=== PATIENT | female | born 1960 | race Caucasian/White ===

== ENCOUNTER 2017-02-20 04:49 | Inpatient (IN) ==
[2017-02-20] MEDS ORDERED: *HR* Adenosine 6 MG/2 ML VIAL IVP ONE (04:52)
[2017-02-20] MEDS ORDERED: Nitroglycerin 25 MG/250 ML INFUS..BTL IVC SCH (05:00)
[2017-02-20] MEDS ORDERED: Furosemide 40 MG/4 ML VIAL IVP ONE ×2 (05:01→06:27)
[2017-02-20] MEDS ORDERED: methylPREDNISolone 125 MG/2 ML VIAL IVP ONE (05:02)
[2017-02-20] MEDS ORDERED: Ipratropium/Albuterol Neb 3 ML IH ONE (05:02)
[2017-02-20] MEDS ORDERED: Nitroglycerin 0.4 MG TAB.SUBL SL PRN (05:05)
--- NOTE | 2017-02-20 05:06 | Emergency Department Note ---
Disposition Clinical Impression: Supraventricular tachycardia, Pulmonary edema, Hypertension Disposition: Admitted As Inpatient Condition: Fair General Adult HPI - General Chief complaint: ED Arrhythmia/Palpitations Stated complaint: rapid HR Time Seen by Provider: 02/20/17 04:50 - Related Data Allergies Allergy/AdvReac Type Severity Reaction Status Date / Time No Known Drug Allergies Allergy Unknown Unresponsiv Verified 02/20/17 05:08 e No Known Drug Intolerances Allergy Unresponsiv Verified 02/20/17 05:08 e Course Vital Signs Temperature 0 F L 02/20/17 05:00 Pulse Rate 180 02/20/17 05:00 Respiratory Rate 28 02/20/17 05:00 Blood Pressure 188/122 02/20/17 05:00 O2 Sat by Pulse Oximetry 92 02/20/17 05:00 Temperature 98.1 F 02/20/17 05:40 Pulse Rate 124 02/20/17 06:10 Respiratory Rate 20 02/20/17 06:10 Blood Pressure 162/94 02/20/17 06:10 O2 Sat by Pulse Oximetry 97 02/20/17 06:10 Oxygen Delivery Oxygen Delivery Bipap Medical Decision Making - Lab Data Result diagrams: 02/20/17 05:15 02/20/17 05:15 Lab Results 02/20/17 02/20/17 02/20/17 Range/Units 05:15 05:15 05:15 WBC 18.3 H (4.3-11.1) K/mcL RBC 4.74 (3.82-4.97) M/mcL Hgb 13.2 (11.5-15.4) g/dL Hct 42.7 (35.3-44.9) % MCV 90.1 (83.0-100.0) fL MCH 27.8 L (28.0-33.3) pg MCHC 30.9 L (31.6-35.5) g/dL RDW 13.8 (11.5-14.5) % Plt Count 432 H (140-400) K/mcL MPV 10.7 (9.4-12.4) fL Immature Gran % 0.7 (0-4) % Seg Neutrophils % 53.6 % Lymphocytes % 36.0 % Monocytes % 7.9 % Eosinophils % 0.9 % Basophils % 0.9 % Neutrophils # 9.8 H (1.6-8.9) K/mcL Lymphocytes # 6.6 H (0.6-4.6) K/mcL Monocytes # 1.5 H (0.0-1.3) K/mcL Eosinophils # 0.2 (0.0-0.6) K/mcL Basophils # 0.2 (0.0-0.2) K/mcL ABG pH (7.32-7.45) pH Units ABG pCO2 (35-45) mmHg ABG pO2 (85-104) mmHg ABG HCO3 (21-27) mEQ/L ABG Total CO2 (20-26) mEq/L ABG O2 Saturation (95-98) % ABG Base Excess (-2.0 to 3.0) mEq/L Respiration Rate Blood Gas Modality Inspired O2 % PEEP cm H2O Sodium 141 (136-145) mEq/L Potassium 3.5 (3.5-4.5) mEq/L Chloride 111 H (98-109) mEq/L Carbon Dioxide 21 (19-29) mEq/L BUN 20 (7-20) mg/dL Creatinine 0.87 (0.57-1.11) mg/dL Est GFR ( Amer) > 60 (> 60) Est GFR (Non-Af Amer) > 60 (> 60) BUN/Creatinine Ratio 23 (6-26) Glucose 262 H (70-99) mg/dL Calculated Osmolality 304 H (280-300) Calcium 8.4 L (8.6-10.8) mg/dL Magnesium 2.0 (1.6-2.6) mg/dL Total Bilirubin 0.2 (0.2-1.2) mg/dL AST 23 (5-34) Units/L ALT 19 (0-55) Units/L Alkaline Phosphatase 121 (38-126) Units/L Troponin I 0.02 (0-0.03) ng/mL Serum Total Protein 7.1 (6.0-8.3) g/dL Albumin 3.4 L (3.5-5.0) g/dL Globulin 3.7 H (2.4-3.5) g/dL Albumin/Globulin Ratio 0.9 L (1.1-2.2) TSH 3.525 (0.350-4.840) mcIU/mL 02/20/17 Range/Units 05:20 WBC (4.3-11.1) K/mcL RBC (3.82-4.97) M/mcL Hgb (11.5-15.4) g/dL Hct (35.3-44.9) % MCV (83.0-100.0) fL MCH (28.0-33.3) pg MCHC (31.6-35.5) g/dL RDW (11.5-14.5) % Plt Count (140-400) K/mcL MPV (9.4-12.4) fL Immature Gran % (0-4) % Seg Neutrophils % % Lymphocytes % % Monocytes % % Eosinophils % % Basophils % % Neutrophils # (1.6-8.9) K/mcL Lymphocytes # (0.6-4.6) K/mcL Monocytes # (0.0-1.3) K/mcL Eosinophils # (0.0-0.6) K/mcL Basophils # (0.0-0.2) K/mcL ABG pH 7.22 L (7.32-7.45) pH Units ABG pCO2 61 H (35-45) mmHg ABG pO2 70 L (85-104) mmHg ABG HCO3 25.0 (21-27) mEQ/L ABG Total CO2 26.9 H (20-26) mEq/L ABG O2 Saturation 90 L (95-98) % ABG Base Excess -3.9 L (-2.0 to 3.0) mEq/L Respiration Rate 14 Blood Gas Modality BIPAP Inspired O2 60 % PEEP 6 cm H2O Sodium (136-145) mEq/L Potassium (3.5-4.5) mEq/L Chloride (98-109) mEq/L Carbon Dioxide (19-29) mEq/L BUN (7-20) mg/dL Creatinine (0.57-1.11) mg/dL Est GFR ( Amer) (> 60) Est GFR (Non-Af Amer) (> 60) BUN/Creatinine Ratio (6-26) Glucose (70-99) mg/dL Calculated Osmolality (280-300) Calcium (8.6-10.8) mg/dL Magnesium (1.6-2.6) mg/dL Total Bilirubin (0.2-1.2) mg/dL AST (5-34) Units/L ALT (0-55) Units/L Alkaline Phosphatase (38-126) Units/L Troponin I (0-0.03) ng/mL Serum Total Protein (6.0-8.3) g/dL Albumin (3.5-5.0) g/dL Globulin (2.4-3.5) g/dL Albumin/Globulin Ratio (1.1-2.2) TSH (0.350-4.840) mcIU/mL Critical Care Time Critical Care Time: Yes Total Critical Care Time: 45 Attestation: Patient presented with a tachycardia arrhythmia requiring IV adenosine and BiPAP therapy Attestation Statement - Attestation Attestation: I examined this patient and my medical decision-making was reviewed with the INTERFACE ANALYST/PA/Advanced Practice Nurse/Resident Physician. I agree with the documented findings, disposition and treatment plan as described except to the extent set forth below. Face to face time provided Patient presents by EMS from home in respiratory distress. Initial rhythm was a narrow complex tachycardia in the 190s. Adenosine given with improvement of heart rate in the 130s. This rate was suspected to be sinus tachycardia over atrial fibrillation with RVR. Pulmonary edema identified on chest x-ray. BiPAP and IV nitroglycerin therapy initiated.
--- NOTE | 2017-02-20 05:07 | Emergency Department Note ---
Disposition Clinical Impression: Supraventricular tachycardia Pulmonary edema Qualifiers: Chronicity: acute Qualified Code(s): J81.0 - Acute pulmonary edema Hypertension Qualifiers: Hypertension type: unspecified secondary hypertension Qualified Code(s): I15.9 - Secondary hypertension, unspecified; I15 - Secondary hypertension Disposition: Admitted As Inpatient Condition: Fair Referrals: NO,PCP [Primary Care Provider] - Forms: ED Satisfaction Letter Time of Disposition: 06:14 Arrhythmia/Palpitations HPI - General Chief Complaint: ED Arrhythmia/Palpitations Stated Complaint: rapid HR Time Seen by Provider: 02/20/17 04:50 Source: EMS Mode of arrival: EMS Limitations: no limitations Nursing Notes Reviewed: Yes Vital Signs Reviewed: Yes - History of Present Illness HPI Narrative: Patient is a 56-year-old female who presents to [facility] ED with a chief complaint of rapid heart rate and difficulty breathing. States her symptoms started approximately 20 minutes ago. States she has had this on and off for the last week. States she has had this before but they have never had to do anything about it the past. Denies any other medical history. Patient admits to tobacco abuse and Suboxone use. Pt Subjective Complaint: rapid heart beat Onset (ago): minute(s) Duration: constant Severity: severe Context: awoke with symptoms Arrhythmia History: SVT Associated symptoms: Reports: shortness of breath, diaphoresis. Denies: chest pain, nausea, vomiting - Related Data Allergies Allergy/AdvReac Type Severity Reaction Status Date / Time No Known Drug Allergies Allergy Unknown Unresponsiv Verified 02/20/17 05:08 e No Known Drug Intolerances Allergy Unresponsiv Verified 02/20/17 05:08 e All systems ED: reviewed and negative except as stated. Past Medical History - Past Medical History Attestation: Yes The following information was validated with the patient. Source: patient Medical history: Reports: SVT Physical Exam - General Limitations: no limitations General appearance: alert, in distress - Head Head exam: atraumatic, normocephalic, normal inspection - Eye Eye exam: Present: normal appearance, PERRL, EOMI - ENT ENT exam: normal exam, normal oropharynx, mucous membranes moist - Neck Neck exam: Present: normal inspection, full ROM, trachea midline - Chest Chest inspection: Present: normal inspection, symmetric chest wall rise - Respiratory Respiratory exam: Present: wheezes, other (tight breath sounds b/l) - Cardiovascular Cardiovascular exam: Present: tachycardia, other (SVT 222 bpm) - Abdominal Exam Abdominal exam: Present: soft, Non-Tender. Absent: tenderness, distention, guarding, rebound, rigidity - Extremities Exam Extremities exam: Present: normal inspection, full ROM, pedal edema. Absent: tenderness - Back Exam Back exam: Present: normal inspection, full ROM. Absent: tenderness - Neurological Exam Neurological exam: Present: alert - Psychiatric Psychiatric exam: Present: normal affect, normal mood - Skin Skin exam: Present: warm, dry, intact, normal color Course Course Narrative: Patient seen and examined. Initially presented in narrow complex tachycardia she appeared to be SVT with a rate of 222 bpm. Vagal maneuver was attempted but patient could not tolerate because she could not breathe. Her oxygen saturation saturations were around 85% on a nonrebreather. The patient was found to be hypertensive with blood pressure 180s over 140s. 6 mg of adenosine was pushed and patient's heart rate slowed down to 130 bpm and appears to be sinus tachycardia. However, patient did continue to have difficulty breathing with continued oxygen saturations in the 80s despite being on a nonrebreather. Concerned that patient has flash pulmonary edema. Stat chest x-ray and labwork ordered. Respiratory therapy was called to have patient placed on BiPAP. We will try sublingual nitroglycerin and nitroglycerin drip as well as 40 mg IV Lasix. - Reevaluation(s) Reevaluation #1: Upon reevaluation, patient's blood pressure has improved with systolic 120s. Patient is much more comfortable on the BiPAP. We will admit for acute pulmonary edema. I spoke with hospitalist Dr. Baptiste who has accepted patient for admission. Time: 06:11 Vital Signs Temperature 0 F L 02/20/17 05:00 Pulse Rate 180 02/20/17 05:00 Respiratory Rate 28 02/20/17 05:00 Blood Pressure 188/122 02/20/17 05:00 O2 Sat by Pulse Oximetry 92 02/20/17 05:00 Temperature 0 F L 02/20/17 05:00 Pulse Rate 180 02/20/17 05:00 Respiratory Rate 32 02/20/17 05:26 Blood Pressure 160/102 02/20/17 05:15 O2 Sat by Pulse Oximetry 92 02/20/17 05:26 Oxygen Delivery Oxygen Delivery Bipap Arrhythmia/Palpitations - Medical Records Medical records reviewed: Yes I reviewed the patient's medical records. - Lab Data Lab results reviewed: Yes I reviewed the patient's lab results. Result diagrams: 02/20/17 05:15 02/20/17 05:15 Lab Results 02/20/17 02/20/17 02/20/17 Range/Units 05:15 05:15 05:15 WBC 18.3 H (4.3-11.1) K/mcL RBC 4.74 (3.82-4.97) M/mcL Hgb 13.2 (11.5-15.4) g/dL Hct 42.7 (35.3-44.9) % MCV 90.1 (83.0-100.0) fL MCH 27.8 L (28.0-33.3) pg MCHC 30.9 L (31.6-35.5) g/dL RDW 13.8 (11.5-14.5) % Plt Count 432 H (140-400) K/mcL MPV 10.7 (9.4-12.4) fL Immature Gran % 0.7 (0-4) % Seg Neutrophils % 53.6 % Lymphocytes % 36.0 % Monocytes % 7.9 % Eosinophils % 0.9 % Basophils % 0.9 % Neutrophils # 9.8 H (1.6-8.9) K/mcL Lymphocytes # 6.6 H (0.6-4.6) K/mcL Monocytes # 1.5 H (0.0-1.3) K/mcL Eosinophils # 0.2 (0.0-0.6) K/mcL Basophils # 0.2 (0.0-0.2) K/mcL ABG pH (7.32-7.45) pH Units ABG pCO2 (35-45) mmHg ABG pO2 (85-104) mmHg ABG HCO3 (21-27) mEQ/L ABG Total CO2 (20-26) mEq/L ABG O2 Saturation (95-98) % ABG Base Excess (-2.0 to 3.0) mEq/L Respiration Rate Blood Gas Modality Inspired O2 % PEEP cm H2O Sodium 141 (136-145) mEq/L Potassium 3.5 (3.5-4.5) mEq/L Chloride 111 H (98-109) mEq/L Carbon Dioxide 21 (19-29) mEq/L BUN 20 (7-20) mg/dL Creatinine 0.87 (0.57-1.11) mg/dL Est GFR ( Amer) > 60 (> 60) Est GFR (Non-Af Amer) > 60 (> 60) BUN/Creatinine Ratio 23 (6-26) Glucose 262 H (70-99) mg/dL Calculated Osmolality 304 H (280-300) Calcium 8.4 L (8.6-10.8) mg/dL Magnesium 2.0 (1.6-2.6) mg/dL Total Bilirubin 0.2 (0.2-1.2) mg/dL AST 23 (5-34) Units/L ALT 19 (0-55) Units/L Alkaline Phosphatase 121 (38-126) Units/L Troponin I 0.02 (0-0.03) ng/mL Serum Total Protein 7.1 (6.0-8.3) g/dL Albumin 3.4 L (3.5-5.0) g/dL Globulin 3.7 H (2.4-3.5) g/dL Albumin/Globulin Ratio 0.9 L (1.1-2.2) TSH 3.525 (0.350-4.840) mcIU/mL 02/20/17 Range/Units 05:20 WBC (4.3-11.1) K/mcL RBC (3.82-4.97) M/mcL Hgb (11.5-15.4) g/dL Hct (35.3-44.9) % MCV (83.0-100.0) fL MCH (28.0-33.3) pg MCHC (31.6-35.5) g/dL RDW (11.5-14.5) % Plt Count (140-400) K/mcL MPV (9.4-12.4) fL Immature Gran % (0-4) % Seg Neutrophils % % Lymphocytes % % Monocytes % % Eosinophils % % Basophils % % Neutrophils # (1.6-8.9) K/mcL Lymphocytes # (0.6-4.6) K/mcL Monocytes # (0.0-1.3) K/mcL Eosinophils # (0.0-0.6) K/mcL Basophils # (0.0-0.2) K/mcL ABG pH 7.22 L (7.32-7.45) pH Units ABG pCO2 61 H (35-45) mmHg ABG pO2 70 L (85-104) mmHg ABG HCO3 25.0 (21-27) mEQ/L ABG Total CO2 26.9 H (20-26) mEq/L ABG O2 Saturation 90 L (95-98) % ABG Base Excess -3.9 L (-2.0 to 3.0) mEq/L Respiration Rate 14 Blood Gas Modality BIPAP Inspired O2 60 % PEEP 6 cm H2O Sodium (136-145) mEq/L Potassium (3.5-4.5) mEq/L Chloride (98-109) mEq/L Carbon Dioxide (19-29) mEq/L BUN (7-20) mg/dL Creatinine (0.57-1.11) mg/dL Est GFR ( Amer) (> 60) Est GFR (Non-Af Amer) (> 60) BUN/Creatinine Ratio (6-26) Glucose (70-99) mg/dL Calculated Osmolality (280-300) Calcium (8.6-10.8) mg/dL Magnesium (1.6-2.6) mg/dL Total Bilirubin (0.2-1.2) mg/dL AST (5-34) Units/L ALT (0-55) Units/L Alkaline Phosphatase (38-126) Units/L Troponin I (0-0.03) ng/mL Serum Total Protein (6.0-8.3) g/dL Albumin (3.5-5.0) g/dL Globulin (2.4-3.5) g/dL Albumin/Globulin Ratio (1.1-2.2) TSH (0.350-4.840) mcIU/mL - Radiology Data Radiology results reviewed: Yes I reviewed the patient's radiology results. Chest X-Ray 02/20/17 04:56 IMPRESSION: Diffuse interstitial edema. D/ / Maisha Gross MD / Maisha Gross MD Interpreting Provider: Maisha Gross MD - EKG Data EKG attestation: Yes I reviewed and interpreted this EKG. EKG results narrative: EKG done at 452 shows narrow complex tachycardia with a rate of around [address] elevation or depression. Normal axis. EKG done at 501 shows sinus tachycardia with a rate of [address] elevation or depression noted. Poor quality study. Normal axis.
[2017-02-20 05:23] LABS: Basophils # 0.2 K/mcL (0.0-0.2); Basophils % 0.9 %; Eosinophils # 0.2 K/mcL (0.0-0.6); Eosinophils % 0.9 %; Hematocrit 42.7 % (35.3-44.9); Hemoglobin 13.2 g/dL (11.5-15.4); Immature Granulocytes % 0.7 % (0-4); Lymphocytes # 6.6 K/mcL (0.6-4.6); Mean Corpuscular HGB Conc 30.9 g/dL (31.6-35.5); Mean Corpuscular Hemoglobin 27.8 pg (28.0-33.3); Mean Corpuscular Volume 90.1 fL (83.0-100.0); Mean Platelet Volume 10.7 fL (9.4-12.4); Monocytes # 1.5 K/mcL (0.0-1.3); Monocytes % 7.9 %; Neutrophils # 9.8 K/mcL (1.6-8.9); Platelet Count 432 K/mcL (140-400); Red Blood Count 4.74 M/mcL (3.82-4.97); Red Cell Distribution Width 13.8 % (11.5-14.5); Segmented Neutrophils % 53.6 %
[2017-02-20 05:27] LABS: ABG Base Excess -3.9 mEq/L (-2.0 to 3.0); ABG Oxygen Saturation 90 % (95-98); ABG PCO2 61 mmHg (35-45); ABG PH 7.22 pH Units (7.32-7.45); ABG PO2 70 mmHg (85-104); ABG TCO2 26.9 mEq/L (20-26); Blood Gas FiO2 60 %; Blood Gas PEEP 6 cm H2O; Blood Gas Respiration Rate 14
[2017-02-20 05:38] LABS: Alanine Aminotransferase 19 Units/L (0-55); Albumin 3.4 g/dL (3.5-5.0); Albumin/Globulin Ratio 0.9 (1.1-2.2); Alkaline Phosphatase 121 Units/L (38-126); Aspartate Amino Transferase 23 Units/L (5-34); BUN/Creatinine Ratio 23 (6-26); Bilirubin,Total 0.2 mg/dL (0.2-1.2); Blood Urea Nitrogen 20 mg/dL (7-20); Calcium 8.4 mg/dL (8.6-10.8); Carbon Dioxide 21 mEq/L (19-29); Chloride 111 mEq/L (98-109); Globulin 3.7 g/dL (2.4-3.5); Glucose 262 mg/dL (70-99); Osmolality,Calculated 304 (280-300); Potassium 3.5 mEq/L (3.5-4.5); Sodium 141 mEq/L (136-145); Total Protein 7.1 g/dL (6.0-8.3); eGFR For African Americans > 60 (> 60); eGFR For Non-African Americans > 60 (> 60)
[2017-02-20 05:58] LABS: Thyroid Stimulating Hormone 3.525 mcIU/mL (0.350-4.840)
--- NOTE | 2017-02-20 06:41 | Internal Med History&Physical ---
Date of Encounter: 02/20/17 Time of Encounter: 06:38 Assessment and Plan (1) Supraventricular tachycardia Current visit: Yes Status: Acute As a sealant presentation. This cardioversion with 6 mg of Karol. Currently in sinus tachycardia. I will start the patient on metoprolol 25 mg twice a day. Echocardiogram thyroid functions will be checked. Cardiology consultation. (2) Pulmonary edema Current visit: Yes Status: Acute Pulmonary edema secondary to SVT. Patient is currently a nitroglycerin drip. Will give a total of 80 mg IV Lasix now continue Lasix 40 mg IV twice daily. Pinedo catheter will be placed. strict intake and output. She denies any chest pain. Will check serial troponin. Keep on aspirin beta blockers. Ruled out acute coronary syndrome. I would also Check D dimer. Qualifiers: Chronicity: acute Qualified Code(s): J81.0 - Acute pulmonary edema (3) Hypercapnic respiratory failure Current visit: Yes Status: Acute Due to pulmonary edema. Patient is currently on BiPAP support. Continue. Patient is full code. Qualifiers: Qualified Code(s): J96.92 - Respiratory failure, unspecified with hypercapnia Internal Medicine - H&P: HPI Chief complaint: palpitations and SOB History of present illness: Ms. Lopez is a 56 year old female with past medical history of cardiac arrhythmia which he has been managing with vagal maneuvers but has not seen physicians and does not take medicines for it presents to the emergency room today with the main complaint palpitations and shortness of breath. Approximately 4 AM as patient was getting ready to go to bed she started noticing sudden onset palpitations which she describes as fast and regular. She attempted vagal maneuvers like holding her breath etc. without success. She also started complaining of shortness of breath addressed, sweating. She was hypoxic on arrival to emergency room to 85% with increased work of breathing so she was placed on BiPAP support. She denied and chest pain. She denies any prior known history of coronary artery disease. No chest pain with exertion. She denies any fever chills or sputum production. Most contexts. No prior history of DVT or pulmonary embolism. She does not take any hormonal therapy Past Med Surg Social Fam HX - Past Medical History Medical history: SVT - Social History Smoking Status: Current every day smoker Smokeless Tobacco Status: No Alcohol use: none Drug use: none Internal Medicine - H&P: Meds Allergies No Known Drug Allergies Allergy (Unknown, Verified 02/20/17 05:08) Unresponsive No Known Drug Intolerances Allergy (Verified 02/20/17 05:08) Unresponsive All Systems PM: A 10-system review of systems was performed and is negative for pertinent findings except as documented above in the HPI. Review of systems: 10 point review of systems is negative except for HPI - Constitutional Vitals: Temp Pulse Resp BP Pulse Ox 98.1 F 124 20 162/94 97 02/20/17 05:40 02/20/17 06:10 02/20/17 06:10 02/20/17 06:10 02/20/17 06:10 Exam: Gen.: patient is alert oriented times 3, moderate respiratory distress cardiac: normal S1 S2 no additional sounds or murmurs chest: bilateral diffuse rales abdomen soft nontender nondistended normal bowel sounds lower extremity no swelling. Neuro: no new focal deficits Internal Med - H&P Results - Labs CBC & Chem 7: 02/20/17 05:15 02/20/17 05:15
[2017-02-20] MEDS ORDERED: Diltiazem CD (24hr) 120 MG CAPSULE PO SCH (09:00)
[2017-02-20 09:29] LABS: Amphetamine Screen,Urine Negative ng/mL (Cutoff=1000); Barbiturate Screen,Urine Negative ng/mL (Cutoff=200); Benzodiazepines Screen,Urine Negative ng/mL (Cutoff=200); Cannabinoid Screen,Urine Negative ng/mL (Cutoff = 50); Cocaine Screen,Urine Negative ng/mL (Cutoff= 300); Opiate Screen,Urine Negative ng/mL (Cutoff=300); Phencyclidine Screen,Urine Negative ng/mL (Cutoff=25)
[2017-02-20 09:42] LABS: Bilirubin,Urine Negative (Negative); Blood,Urine Negative (Negative); Clarity,Urine Clear (Clear); Color,Urine Yellow (Yellow); Glucose,Urine (UA) Normal (Normal); Ketones,Urine Negative (Negative); Leukocyte Esterase,Urine Negative (Negative); Nitrite,Urine Negative (Negative); PH,Urine 6.5 pH Units (5.0-8.0); Protein,Urine Negative (Neg-Trace); Specific Gravity,Urine 1.011 (1.010-1.025); Urobilinogen,Urine Normal (Normal)
[2017-02-20] MEDS: SUBOXONE PO SCH ×2 (09:59→22:45)
--- NOTE | 2017-02-20 10:23 | Event Note ---
Date of Encounter: 02/20/17 Time of Encounter: 10:19 Admitted for SVTs Pulmonary edema Attention drawn to patient with SVTs HR 250s She is hemodynamically stable, awake, alert, no CP, no diaphoresis We gave Adneosine 6mg X1, 12mg X1 EKG changed to sinus rhythm Later she went into SVTs again BP stable Responded to 10mg cardizem push She has been started on cardizem drip at a low dose with aim to transition to po Initial trop negative, ECHO is pending, cardiology was already consulted by admitting team Nitro drip discontinued Continue other management
[2017-02-20] MEDS: Furosemide 40 MG/4 ML VIAL IVP SCH ×2 (11:03→21:25)
[2017-02-20] MEDS: Aspirin 325 MG TABLET PO SCH (11:03)
--- NOTE | 2017-02-20 11:49 | Cardiology Consult Note ---
<Jesus Manuel Pandey R - Last Filed: 02/20/17 11:59> Date of Encounter: 02/20/17 Time of Encounter: 11:49 Assessment and Plan (1) Supraventricular tachycardia Current Visit: Yes Status: Acute Reportedly converted with 6mg of Adenosine on presentation. 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 Based on hx, seems to have been intermittent since she was a child. Recurrent episode with HR documented as 250 and was given cardizem IV bolus and started on gtt. Hospitalist transitioning to PO Cardizem CD 120mg daily and started on Lopressor 25mg BID. Agree with these medications. SR at bedside with brief runs of SVT. Check echo to evaluate structure and function. Will refer to EP as outpt to discuss treatment options/ablation. K 3.5, Mag 2.0, TSH within normal range. Reports 2-3 cups of coffee each morning then sips on pop throughout the day. Discussed decreasing caffeine intake. Continue to follow. (2) Pulmonary edema Current Visit: Yes Status: Acute On IV diuresis, Lasix 40mg BID. Echo to evaluate structure and function. Qualifiers: Chronicity: acute Qualified Code(s): J81.0 - Acute pulmonary edema (3) Hypertension Current Visit: Yes Status: Acute CCB and BB started. BP currently controlled. Qualifiers: Hypertension type: unspecified secondary hypertension Qualified Code(s): I15.9 - Secondary hypertension, unspecified; I15 - Secondary hypertension (4) Elevated troponin Current Visit: Yes Status: Acute 0.02, 0.08 in setting of SVT/AVNRT, likely demand ischemia. Nondiagnostic for ACS. Pt denies chest pain. Check echo to evaluate structure and function. Will discuss with Dr. Wahl. Can consider stress test as inpt if warranted. (5) Hypercapnic respiratory failure Current Visit: Yes Status: Acute Previously on BiPAP, currently on nasal cannula O2. Management per primary team. Qualifiers: Chronicity: acute Qualified Code(s): J96.02 - Acute respiratory failure with hypercapnia Discussion w patient/family: The assessment and plan as outlined above was discussed with the patient and/or family members who expressed understanding and agreement. All questions were answered. Thank you for involving us in the care of your patient. Please call with any questions. I will discuss all the above with Dr. Wahl and make changes as necessary. History of Present Illness Consult date: 02/20/17 Requesting physician: Varun Baptiste Consult reason: SVT Chief complaint: palpitations, dyspnea History of present illness: Ms. Lopez is a 56 year old female with PMH of self reported cardiac arrhythmia which he has been managing with vagal maneuvers since she was a child , but has not seen a provider. She reports episodes started worsening over the past week and she presented to the emergency room today with chief complaints of palpitations and shortness of breath. Approximately 4 AM she had sudden onset of palpitations which she describes as fast and regular. She attempted vagal maneuvers like holding her breath etc. without success. She also started complaining of shortness of breath and sweating. She was noted to be hypoxic on arrival to emergency room to 85% with increased work of breathing so she was placed on BiPAP support. She denied and chest pain. She denies any prior known history of coronary artery disease. Troponin negative x 1. Pt now on nasal cannula O2. Reports currently feeling better. Admits to drinking 2-3 cups/ coffee each morning and sipping on mellow yellow throughout the day. Past Med Surg Social Fam HX - Past Medical History Medical history: SVT Psychiatric history: anxiety - Social History Smoking Status: Current every day smoker Smokeless Tobacco Status: No Alcohol use: none Drug use: none Medications and Allergies Buprenorphine HCl/Naloxone HCl [Buprenorphin-Naloxon 8-2 mg Sl] 1 tab SL BID [History] Allergies No Known Allergies Allergy (Verified 02/20/17 09:15) All Systems Review: A 10-system review of systems was performed and is negative for pertinent findings except as documented above in the HPI. - Cardiovascular Cardiovascular: as per HPI, dyspnea at rest, dyspnea on exertion, palpitations - Respiratory Respiratory: dyspnea Physical Examination Vital Signs, Last 4 Hours Temp Pulse Resp BP Pulse Ox 02/20/17 11:34 98.1 F 81 18 116/83 97 Vital Signs Temp Pulse Resp BP Pulse Ox 02/20/17 11:34 98.1 F 81 18 116/83 97 02/20/17 07:04 97.4 F L 138 38 136/97 100 02/20/17 06:10 124 20 162/94 97 02/20/17 06:00 118 20 170/98 98 02/20/17 05:50 120 20 128/104 98 02/20/17 05:40 98.1 F 124 20 134/107 98 02/20/17 05:30 140 20 165/116 94 02/20/17 05:26 32 92 02/20/17 05:20 150 20 160/102 90 02/20/17 05:15 32 160/102 92 02/20/17 05:00 0 F L 180 28 188/122 92 Intake and Output 02/19/17 02/20/17 02/20/17 23:59 07:59 15:59 Intake Total Output Total 500 / 500 Balance -485 / -485 Intake: IV Fluids Nitroglycerin 25 mg In 250 ml @ 10 MCG/MIN 6 mls /hr IVC .Q24H [facility] Rx#: [id number] Output: Urine 500 / 500 Other: Weight 56.699 kg Patient Weight 02/20/17 23:59 Weight 56.699 kg General: Conversant, No Apparent Distress HEENT: Atraumatic, Normocephaly, Mucus Membranes Moist Neck: No JVD, Normal carotid pulses Cardiac: Reg Rate and Rhythm, Normal S1 and S2, No Murmur Lungs: Other (diminished) Neuro: Alert and responsive, No focal deficits noted Abdomen: Soft, Non-Tender Skin: No rashes noted on visualized skin Musculoskeletal: No Chest Wall Tenderness Extremities: No Clubbing, No Cyanosis, No Edema, Normal Pulses Results 02/20/17 05:15 02/20/17 05:15 Lab Results 02/20/17 11:06 Troponin I 0.08 H* Short CBC 02/20/17 Range/Units 05:15 WBC 18.3 H (4.3-11.1) K/mcL Hgb 13.2 (11.5-15.4) g/dL Hct 42.7 (35.3-44.9) % Plt Count 432 H (140-400) K/mcL Neutrophils # 9.8 H (1.6-8.9) K/mcL BMP 02/20/17 Range/Units 05:15 Sodium 141 (136-145) mEq/L Potassium 3.5 (3.5-4.5) mEq/L Chloride 111 H (98-109) mEq/L Carbon Dioxide 21 (19-29) mEq/L BUN 20 (7-20) mg/dL Creatinine 0.87 (0.57-1.11) mg/dL Glucose 262 H (70-99) mg/dL Calcium 8.4 L (8.6-10.8) mg/dL Cardiac Enzymes 02/20/17 02/20/17 Range/Units 11:06 05:15 Troponin I 0.08 H* 0.02 (0-0.03) ng/mL Liver Function 02/20/17 Range/Units 05:15 Total Bilirubin 0.2 (0.2-1.2) mg/dL AST 23 (5-34) Units/L ALT 19 (0-55) Units/L Alkaline Phosphatase 121 (38-126) Units/L Albumin 3.4 L (3.5-5.0) g/dL Urine 02/20/17 Range/Units 09:00 Urine Color Yellow (Yellow) Urine Clarity Clear (Clear) Urine pH 6.5 (5.0-8.0) pH Units Ur Specific [place] 1.011 (1.010-1.025) Urine Protein Negative (Neg-Trace) mg/dL Urine Glucose (UA) Normal (Normal) mg/dL Impressions Chest X-Ray 02/20/17 04:56 IMPRESSION: Diffuse interstitial edema. D/ / Maisha Gross MD / Maisha Gross MD Interpreting Provider: Maisha Gross MD Active Medications Aspirin (Aspirin) 325 mg PO DAILY [facility] Stop: 08/22/17 09:01 Last Admin: 02/20/17 11:03 Dose: 325 mg Diltiazem HCl (Cardizem Cd) 120 mg PO DAILY [facility] Stop: 08/22/17 09:01 Enoxaparin Sodium (Lovenox) 40 mg SQ 0600 [facility] PRN Reason: Protocol Stop: 08/23/17 07:01 Furosemide (Lasix) 40 mg IVP BID [facility] Stop: 08/22/17 09:01 Last Admin: 02/20/17 11:03 Dose: 40 mg Nitroglycerin (Nitroglycerin) 25 mg in 250 mls @ 6 mls/hr IVC .Q24H [facility]; 10 MCG /MIN PRN Reason: Protocol Stop: 08/22/17 05:01 Last Titration: 02/20/17 08:05 Dose: 0 mcg/min, 0 mls/hr Diltiazem HCl 125 mg/ Dextrose 125 mls @ 5 mls/hr IVC .Q24H [facility]; 5 MG/HR PRN Reason: Protocol Stop: 08/22/17 08:31 Last Admin: 02/20/17 08:35 Dose: 5 mg/hr, 5 mls/hr Metoprolol Tartrate (Lopressor) 25 mg PO BID [facility] Stop: 08/22/17 09:01 Last Admin: 02/20/17 09:42 Dose: Not Given Nitroglycerin (Nitroglycerin) 0.4 mg SL Q5MIN PRN PRN Reason: Chest Pain Stop: 08/22/17 05:06 Pharmacy Profile Note (Patient Taking Own Medication) 1 each PO BID [facility] Stop: 08/22/17 09:01 Last Admin: 02/20/17 09:59 Dose: 1 each - EKG Interpretation EKG results cardiology: personally reviewed (SVT, AVNRT), other (24 hour tele AVG HR 91, SVT/AVNRT noted) Consult Discharge Plan - Plan Referrals: NO,PCP [Primary Care Provider] - <Zenaida Wahl - Last Filed: 02/20/17 15:59> Date of Encounter: 02/20/17 Assessment and Plan Discussion w patient/family: The assessment and plan as outlined above was discussed with the patient and/or family members who expressed understanding and agreement. All questions were answered. Thank you for involving us in the care of your patient. Please call with any questions. History of Present Illness History of present illness: Ms. Lopez is a 56 year old female All Systems Review: A 10-system review of systems was performed and is negative for pertinent findings except as documented above in the HPI. Physical Examination Vital Signs, Last 4 Hours Pulse Resp BP Pulse Ox 02/20/17 13:00 87 18 93/66 97 02/20/17 12:00 78 18 109/74 95 Results 02/20/17 05:15 02/20/17 05:15 Lab Results 02/20/17 11:06 Troponin I 0.08 H* - Attending Attestation I examined this patient and my medical decision-making was reviewed with the BOILER HELPER/PA/Advanced Practice Nurse/Resident Physician. I agree with the documented findings, disposition and treatment plan. Patient has a reported history of dysrhythmia and reports more frequent symptoms recently which appears to be driven by her respiratory status. Presenting ECG demonstrates SVT. She is having occasional episodes of SVT over the course of the day. She is feeling better. Agree with AVN blockers. May recommend follow up with Dr. Pablo Victor.
[2017-02-20] MEDS ORDERED: *HR* Adenosine 6 MG/2 ML SYRINGE IVP ONE (13:59)
[2017-02-20] MEDS ORDERED: Dextrose Gel 15 GM PO PRN ×2 (15:41)
[2017-02-20] MEDS ORDERED: *HR* Dextrose 50 % in Water (Syg) 50 ML SYRINGE IVP PRN (15:41)
[2017-02-20] MEDS ORDERED: D5% in Water 1,000 ML IVC PRN (15:41)
[2017-02-20] MEDS ORDERED: Nicotine 21 MG PATCH.TD24 TD PRN (15:41)
[2017-02-20] MEDS: Insulin LISPRO 300 UNITS/3 ML VIAL SQ SCH (16:33)
[2017-02-20] MEDS: Diltiazem CD (24hr) 120 MG CAPSULE PO SCH (17:00)
[2017-02-20 18:03] LABS: Hemoglobin A1C 4.9 %
--- NOTE | 2017-02-20 18:07 | Electrocardiograph Report ---
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
--- NOTE | 2017-02-20 18:08 | Electrocardiograph Report ---
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
[2017-02-20] MEDS ORDERED: Insulin LISPRO 300 UNITS/3 ML VIAL SQ SCH (21:00)
[2017-02-21] MEDS ORDERED: *HR* Enoxaparin 40 MG/0.4 ML SYRINGE SQ SCH (07:00)
[2017-02-21 07:46] LABS: Basophils % 0.1 %; Eosinophils % 0.1 %; Hematocrit 38.2 % (35.3-44.9); Hemoglobin 11.9 g/dL (11.5-15.4); Immature Granulocytes % 0.3 % (0-4); Lymphocytes # 2.2 K/mcL (0.6-4.6); Lymphocytes % 16.3 %; Mean Corpuscular HGB Conc 31.2 g/dL (31.6-35.5); Mean Corpuscular Hemoglobin 27.2 pg (28.0-33.3); Mean Corpuscular Volume 87.4 fL (83.0-100.0); Mean Platelet Volume 11.3 fL (9.4-12.4); Monocytes # 1.5 K/mcL (0.0-1.3); Monocytes % 10.8 %; Neutrophils # 9.9 K/mcL (1.6-8.9); Platelet Count 338 K/mcL (140-400); Red Blood Count 4.37 M/mcL (3.82-4.97); Red Cell Distribution Width 13.7 % (11.5-14.5); Segmented Neutrophils % 72.4 %
[2017-02-21] MEDS: Insulin LISPRO 300 UNITS/3 ML VIAL SQ SCH ×2 (08:02→12:14)
[2017-02-21 08:03] LABS: BUN/Creatinine Ratio 31 (6-26); Blood Urea Nitrogen 25 mg/dL (7-20); Calcium 9.3 mg/dL (8.6-10.8); Carbon Dioxide 29 mEq/L (19-29); Chloride 102 mEq/L (98-109); Glucose 95 mg/dL (70-99); Magnesium 2.1 mg/dL (1.6-2.6); Osmolality,Calculated 290 (280-300); Potassium 3.9 mEq/L (3.5-4.5); Sodium 138 mEq/L (136-145); eGFR For African Americans > 60 (> 60); eGFR For Non-African Americans > 60 (> 60)
[2017-02-21] MEDS: Diltiazem CD (24hr) 120 MG CAPSULE PO SCH (08:38)
[2017-02-21] MEDS: Aspirin 325 MG TABLET PO SCH (08:38)
[2017-02-21] MEDS: Furosemide 40 MG/4 ML VIAL IVP SCH (08:38)
[2017-02-21] MEDS: SUBOXONE PO SCH (10:15)
--- NOTE | 2017-02-21 10:59 | Discharge Summary ---
Date of Encounter: 02/21/17 Time of Encounter: 10:56 - Discharge Diagnosis (1) Hypercapnic respiratory failure Priority: Primary Status: Acute Qualifiers: Chronicity: acute Qualified Code(s): J96.02 - Acute respiratory failure with hypercapnia (2) Hypertension Priority: Secondary Status: Chronic Qualifiers: Hypertension type: unspecified secondary hypertension Qualified Code(s): I15.9 - Secondary hypertension, unspecified; I15 - Secondary hypertension (3) Pulmonary edema Priority: Primary Status: Acute Qualifiers: Chronicity: acute Qualified Code(s): J81.0 - Acute pulmonary edema (4) Supraventricular tachycardia Priority: Primary Status: Acute - Discharge Medications Prescriptions: Diltiazem CD (24hr) [Cardizem CD] 120 mg PO DAILY #30 cap.er.24h Furosemide [Lasix] 40 mg PO BID #60 tab Metoprolol [Lopressor] 12.5 mg PO BID #60 tablet Home Medications: Buprenorphine HCl/Naloxone HCl [Buprenorphin-Naloxon 8-2 mg Sl] 1 tab SL BID [History] Diltiazem CD (24hr) [Cardizem CD] 120 mg PO DAILY #30 cap.er.24h 02/21/17 [Rx] Furosemide [Lasix] 40 mg PO BID #60 tab 02/21/17 [Rx] Metoprolol [Lopressor] 12.5 mg PO BID #60 tablet 02/21/17 [Rx] Allergies/Adverse Reactions: Allergies No Known Allergies Allergy (Verified 02/20/17 09:15) Procedures/tests Complete & Pending: Procedures Performed prior 72 hours Category Date Time Status ECG 12 lead ECG [ECG] Routine Y 02/20/17 07:51 Completed Date of admission: 02/20/17 06:25 Primary care physician: PCP NO Consults: Cardiology: Dr. Wahl Discharging clinician: Gogo Mendoza Anticipated date of discharge: 02/21/17 - Patient Status Disposition: Home, Self-Care Condition: Good Functional capacity at discharge: independent ambulation Overall status at discharge: patient is back to baseline - Discharge Instructions Follow Up With: NO,PCP [Primary Care Provider] - Additional Instructions: Please follow up with your primary care physician within five days after your discharge from the hospital. Please follow up with your cross enterprise integrator within one week after your discharge from the hospital. Cardizem 120mg once a day has been added to your home medications. Metoprolol 12.5mg twice a day has been added to your home medications. Closely monitor your blood pressure daily. Hold this medication if your SBP<120. Document these BP readings and take them with you to your cross enterprise integrator's appointment. Lasix 40mg twice a day has been added to your home medications. Resume all your home medications as prescribed by your primary care physician. Smoking cessation is highly advised. - Diet and Activity Diet: low salt diet Hospital course: Ms. Lopez is a 56 year old female with PMH of anxiety and self reported cardiac arrhythmia who was admitted for management of acute respiratory failure secondary to pulmonary edema and SVT. Pt was started on IV diuresis and required Adenosine x 2 doses for rate control/conversion. She was further started on cardizem PO with adequate rate control. She was followed by cardiology and had a 2D echo which shows Normal LV systolic function with LVEF of 65% and evidence of small to moderate pericardial effusion adjacent to the right atrium and right ventricle. No cardiac tamponade. Pt is clinically asymptomatic. Vitals within acceptable range. Holding BB dose due to low BP. Rate controlled with cardizem. Patient wishes to be discharged to home. Discharge pending clearance from cardiology - Time Spent with Patient Total time spent providing and/or coordinating discharge services: Less than 30 minutes - Constitutional Vitals: Temp Pulse Resp BP Pulse Ox 98.3 F 70 15 100/79 97 02/21/17 07:49 02/21/17 07:49 02/21/17 07:49 02/21/17 07:49 02/21/17 07:49 General appearance: Present: cooperative, A&O X 3, pleasant, no acute distress, answers questions appropriately - Head Head exam: Present: atraumatic, normocephalic - Eye Eye exam: Present: normal appearance, PERRL, conjuntiva pink, sclera anicteric - Respiratory Respiratory exam: Present: CTAB. Absent: accessory muscle use, rales, rhonchi, wheezes - Cardiovascular Cardiovascular exam: Present: RRR, +S1, +S2. Absent: diastolic murmur, gallop, rubs, systolic murmur - GI/Abdominal GI/Abdominal exam: Present: normal bowel sounds, soft, no peritoneal signs. Absent: distended, tenderness - Extremities Exam Extremities exam: Present: warm, radial pulses palpable and symetrical. Absent : calf tenderness, cyanotic, pedal edema - Neurological Exam Neurological exam: Present: alert, oriented X3 - Psychiatric Psychiatric exam: Present: normal affect, normal mood
[2017-02-21 11:26] VITALS: BP 111/71
--- NOTE | 2017-02-21 11:54 | Cardiology Progress Note ---
Date of Encounter: 02/21/17 Time of Encounter: 11:51 Assessment and Plan (1) Supraventricular tachycardia Current Visit: Yes Status: Acute Reportedly converted with 6mg of Adenosine on presentation. EKGs reviewed with EP, Dr. Pablo Victor-IMANIT, possibly exacerbated secondary to respiratory status. Based on hx, seems to have been intermittent since she was a child. Started on PO Cardizem CD 120mg daily and Lopressor 12.5mg BID. Agree with these medications. Will refer to EP as outpt to discuss treatment options/ablation. K 3.5, Mag 2.0, TSH within normal range. Reports 2-3 cups of coffee each morning then sips on pop throughout the day. Discussed decreasing caffeine intake. Echo shows preserved EF 65%. Small-moderate pericardial effusion without evidence of tamponade. Cardiology signing off. Follow-up as outpt. Will coordinate outpt echo on Monday to re-evaluate pericardial effusion. (2) Pulmonary edema Current Visit: Yes Status: Acute Transitioned to PO Lasix by hospitalist. Breathing has improved, now on room air. Preserved EF on echo. Qualifiers: Chronicity: acute Qualified Code(s): J81.0 - Acute pulmonary edema (3) Hypertension Current Visit: Yes Status: Chronic CCB and BB started. BP currently controlled. Qualifiers: Hypertension type: unspecified secondary hypertension Qualified Code(s): I15.9 - Secondary hypertension, unspecified; I15 - Secondary hypertension (4) Elevated troponin Current Visit: Yes Status: Acute 0.02, 0.08. 0.04 in setting of SVT/AVNRT, likely demand ischemia. Nondiagnostic for ACS. Pt denies chest pain. Preserved EF on echo. (5) Hypercapnic respiratory failure Current Visit: Yes Status: Acute Previously on BiPAP, then nasal cannula O2, now on room air. Management per primary team. Qualifiers: Chronicity: acute Qualified Code(s): J96.02 - Acute respiratory failure with hypercapnia (6) Pericardial effusion without cardiac tamponade Current Visit: Yes Status: Acute Echo shows small-moderate pericardial effusion adjacent to right atrium and right ventricle without evidence of tamponade. Will coordinate outpt echo on Monday to re-evaluate pericardial effusion. Discussion w patient/family: The assessment and plan as outlined above was discussed with the patient and/or family members who expressed understanding and agreement. All questions were answered. Thank you for involving us in the care of your patient. Please call with any questions. I will discuss all the above with Dr. Wahl and make changes as necessary. Subjective Principal diagnosis: SVT Interval history: Pt reports feeling better today, still reports occasional palpitations. Atrial tach and occasional SVT noted on tele. 24 hour tele AVG HR 70. Echo EF 65%, mild phtn, small-moderate pericardial effusion without evidence of tamponade. Objective Vital Signs, Last 4 Hours Temp Pulse Resp BP Pulse Ox 02/21/17 11:24 97.9 F 70 16 111/71 96 Vital Signs Temp Pulse Resp BP Pulse Ox 02/21/17 11:24 97.9 F 70 16 111/71 96 02/21/17 07:49 98.3 F 70 15 100/79 97 02/21/17 04:05 78 14 110/72 98 02/21/17 04:00 100 02/20/17 23:00 67 16 129/74 96 02/20/17 19:18 97.8 F 84 18 103/63 98 02/20/17 19:00 75 02/20/17 17:03 80 112/79 02/20/17 16:26 97.8 F 72 18 92/66 98 02/20/17 16:00 67 98/64 02/20/17 15:00 81 100/74 02/20/17 13:00 87 18 93/66 97 02/20/17 12:00 78 18 109/74 95 Intake and Output 02/20/17 02/21/17 02/21/17 23:59 07:59 15:59 Intake Total 291.7 / 291.7 Output Total 600 / 600 800 / 800 800 / 800 Balance -308.3 / -308.3 -800 / -800 -800 / -800 Intake: IV Fluids 51.7 / 51.7 Cardizem 125 MG In 51.7 / 51.7 Dextrose 5% 100 ML @ 5 MG /HR 5 mls/hr IVC .Q24H [facility] Rx#:[id number] Oral 240 / 240 Output: Urine 600 / 600 800 / 800 800 / 800 Other: Meal Dinner npo Percent of Meal Consumed 50% 0% Weight 55.4 kg Blood Glucose* 115 114 Patient Weight 02/21/17 23:59 Weight 55.4 kg General: Conversant, No Apparent Distress HEENT: Atraumatic, Normocephaly, Mucus Membranes Moist Neck: No JVD, Normal carotid pulses Cardiac: Reg Rate and Rhythm, Normal S1 and S2, No Murmur Lungs: Normal Breath Sounds, No Wheeze, Rales, Rhonchi Neuro: Alert and responsive, No focal deficits noted Abdomen: Soft, Non-Tender Skin: No rashes noted on visualized skin Musculoskeletal: No Chest Wall Tenderness Extremities: No Clubbing, No Cyanosis, No Edema, Normal Pulses Results 02/21/17 06:40 02/21/17 06:40 Lab Results 02/20/17 02/21/17 02/21/17 16:53 06:40 06:40 WBC 13.7 H Hgb 11.9 Hct 38.2 Plt Count 338 Sodium 138 Potassium 3.9 Chloride 102 Carbon Dioxide 29 BUN 25 H Creatinine 0.80 Glucose 95 Calcium 9.3 Magnesium 2.1 Troponin I 0.04 H* Short CBC 02/21/17 Range/Units 06:40 WBC 13.7 H (4.3-11.1) K/mcL Hgb 11.9 (11.5-15.4) g/dL Hct 38.2 (35.3-44.9) % Plt Count 338 (140-400) K/mcL Neutrophils # 9.9 H (1.6-8.9) K/mcL BMP 02/21/17 Range/Units 06:40 Sodium 138 (136-145) mEq/L Potassium 3.9 (3.5-4.5) mEq/L Chloride 102 (98-109) mEq/L Carbon Dioxide 29 (19-29) mEq/L BUN 25 H (7-20) mg/dL Creatinine 0.80 (0.57-1.11) mg/dL Glucose 95 (70-99) mg/dL Calcium 9.3 (8.6-10.8) mg/dL Cardiac Enzymes 02/20/17 Range/Units 16:53 Troponin I 0.04 H* (0-0.03) ng/mL Active Medications Aspirin (Aspirin) 325 mg PO DAILY [facility] Stop: 08/22/17 09:01 Last Admin: 02/21/17 08:38 Dose: 325 mg Dextrose/Water (Dextrose 50% (Syg)) 25 ml IVP AD PRN PRN Reason: Hypoglycemia Stop: 08/22/17 15:42 Diltiazem HCl (Cardizem Cd) 120 mg PO DAILY [facility] Stop: 08/22/17 16:29 Last Admin: 02/21/17 08:38 Dose: 120 mg Enoxaparin Sodium (Lovenox) 40 mg SQ 0600 [facility] PRN Reason: Protocol Stop: 08/23/17 07:01 Last Admin: 02/21/17 06:25 Dose: 40 mg Furosemide (Lasix) 40 mg IVP BID [facility] Stop: 08/22/17 09:01 Last Admin: 02/21/17 08:38 Dose: 40 mg Glucagon (Glucagen) 1 mg IM ONCE PRN PRN Reason: Hypoglycemia Stop: 08/22/17 15:42 Glucose (Gluctose) 15 gm PO ONCE PRN PRN Reason: Hypoglycemia Stop: 08/22/17 15:42 Glucose (Gluctose) 30 gm PO ONCE PRN PRN Reason: Hypoglycemia Stop: 08/22/17 15:42 Dextrose (Dextrose 5%) 1,000 mls @ 100 mls/hr IVC .Q10H PRN PRN Reason: HYPOGLYCEMIA Stop: 08/22/17 15:42 Insulin Human Lispro (Humalog) 0 units SQ HS [facility] PRN Reason: Protocol Stop: 08/22/17 21:01 Last Admin: 02/20/17 21:25 Dose: Not Given Insulin Human Lispro (Humalog) 0 units SQ TIDAC [facility] PRN Reason: Protocol Stop: 08/22/17 16:31 Last Admin: 02/21/17 08:02 Dose: Not Given Metoprolol Tartrate (Lopressor) 25 mg PO BID [facility] Stop: 08/22/17 09:01 Last Admin: 02/20/17 09:42 Dose: Not Given Nicotine (Nicoderm) 21 mg TD Q24H PRN PRN Reason: NICOTINE CRAVING Stop: 08/22/17 15:42 Nitroglycerin (Nitroglycerin) 0.4 mg SL Q5MIN PRN PRN Reason: Chest Pain Stop: 08/22/17 05:06 Pharmacy Profile Note (Patient Taking Own Medication) 1 each PO BID [facility] Stop: 08/22/17 09:01 Last Admin: 02/21/17 10:15 Dose: 1 each - Imaging and Cardiology Echo: report reviewed - EKG Interpretation EKG results cardiology: other (24 hour tele AVG HR 70, brief episodes of atrial tach and SVT) Consult Discharge Plan - Plan Additional Instructions: Please follow up with your primary care physician within five days after your discharge from the hospital. Please follow up with your desktop manager within one week after your discharge from the hospital. Cardizem 120mg once a day has been added to your home medications. Metoprolol 12.5mg twice a day has been added to your home medications. Closely monitor your blood pressure daily. Hold this medication if your SBP<120. Document these BP readings and take them with you to your desktop manager's appointment. Lasix 40mg twice a day has been added to your home medications. Resume all your home medications as prescribed by your primary care physician. Smoking cessation is highly advised. Referrals: NO,PCP [Primary Care Provider] - Prescriptions: Diltiazem CD (24hr) [Cardizem CD] 120 mg PO DAILY #30 cap.er.24h Furosemide [Lasix] 40 mg PO BID #60 tab Metoprolol [Lopressor] 12.5 mg PO BID #60 tablet
[2017-02-22 18:22] LABS: CK-BB (CK isoenzymes) 0 % (0-0); CK-MB (CK isoenzymes) 0 % (0-4); CK-MM (CK-isoenzymes) 100 % (96-100)
[2017-02-23 11:20] LABS: CK Total (Ck Isoenzymes) 115 U/L (20-180)
[2017-02-23 20:30] LABS: CK-BB (CK isoenzymes) 0 % (0-0); CK-MB (CK isoenzymes) 0 % (0-4); CK-MM (CK-isoenzymes) 100 % (96-100)
[2017-02-24 10:51] LABS: CK Total (Ck Isoenzymes) 116 U/L (20-180)
== END 2017-02-21 13:20 | disposition home or self-care (01) | DRG 133 ==
LOC: EMEROO 04:49 → 2NNU 04:49 → SUATTDRO 06:25 → 2NNU 07:07
PROVIDERS: ADMIT Hospitalist; ATTEND Internal Medicine